=== PATIENT | male | born 1970 | race African-American/Black ===

== ENCOUNTER 2022-01-15 21:18 | Emergency (ER) | payer OTHER ==
[~2022-01-15] VITALS: Ht 162.6 cm; Wt 86.4 kg
[2022-01-15 22:46] LABS: COVID AG,FIA SOURCE NASOPHARYNGEAL
[2022-01-16 00:26] LABS: INFLUENZA TYPE A NEGATIVE FOR TYPE A (NEGATIVE); INFLUENZA TYPE B NEGATIVE FOR TYPE B (NEGATIVE)
[2022-01-16] MEDS ORDERED: BENZ-70 PO (02:19)
[2022-01-16 02:30] VITALS: BP 145/83
[2022-01-16] MEDS ORDERED: BENZONATATE 100 MG CAPSULE PO ONE (02:30)
== END 2022-01-16 02:32 | disposition home or self-care (01) ==
LOC: EMS 21:18
DX: R05.9 Cough, unspecified (principal); Z20.822 Contact with and (suspected) exposure to COVID-19; F10.20 Alcohol dependence, uncomplicated; F17.210 Nicotine dependence, cigarettes, uncomplicated
CPT/HCPCS: 71046; 87804; 99284

== ENCOUNTER 2024-01-21 15:06 | Emergency (ER) | payer OTHER ==
[~2024-01-21] VITALS: Ht 177.8 cm; Wt 81.8 kg
[~2024-01-21 15:06] MED LIST: BENZ-227 PO
[2024-01-21 15:28] VITALS: BP 164/89; PULSE 84; RESP 18; TEMP 98.6; O2SAT 99
== END 2024-01-21 18:48 | disposition left against medical advice (07) ==
LOC: EMS 15:06
DX: Z53.21 Procedure and treatment not carried out due to patient leaving prior to being seen by health care provider (principal)
CPT/HCPCS: 82962